=== PATIENT | female | born 1965 | race Two or more races ===

== ENCOUNTER 2017-04-18 17:31 | Emergency (ER) | payer MEDICAID ==
[~2017-04-18] VITALS: Ht 154.9 cm; Wt 77.1 kg
[2017-04-18 17:52] VITALS: BP 107/74
[2017-04-18] MEDS ORDERED: cefTRIAXone SOD 1,000 MG VL IM ONE (19:30)
[2017-04-18] MEDS ORDERED: TETANUS-DIPTH-ACEL PERTUSSIS 0.5ML SYRG IM ONE (19:45)
== END 2017-04-18 19:57 | disposition home or self-care (01) ==
LOC: ER 17:45
DX: L03.113 Cellulitis of right upper limb (principal); L81.8 Other specified disorders of pigmentation; Z23 Encounter for immunization
CPT/HCPCS: 90471; 90715; 96372; 99284; J0696

== ENCOUNTER 2017-10-14 09:37 | Emergency (ER) | payer MEDICAID ==
[~2017-10-14] VITALS: Ht 154.9 cm; Wt 79.4 kg
[2017-10-14 11:26] VITALS: BP 129/70
== END 2017-10-14 11:26 | disposition home or self-care (01) ==
LOC: ER 09:37
DX: G51.0 Bell's palsy (principal); E07.89 Other specified disorders of thyroid; Z90.710 Acquired absence of both cervix and uterus; Z98.51 Tubal ligation status; Z90.89 Acquired absence of other organs
CPT/HCPCS: 70450

== ENCOUNTER 2018-01-04 10:12 | Emergency (ER) | payer MEDICAID ==
[~2018-01-04] VITALS: Ht 157.5 cm; Wt 77.1 kg
[2018-01-04 10:45] VITALS: BP 108/77
[2018-01-04] MEDS ORDERED: cefTRIAXone SOD 1,000 MG VL IM ONE (11:45)
== END 2018-01-04 12:26 | disposition home or self-care (01) ==
LOC: ER 10:12
DX: K04.7 Periapical abscess without sinus (principal); Z86.73 Personal history of transient ischemic attack (TIA), and cerebral infarction without residual deficits
CPT/HCPCS: 96372; 99283; J0696

== ENCOUNTER 2018-11-21 11:14 | Emergency (ER) | payer MEDICAID ==
[~2018-11-21] VITALS: Ht 167.6 cm; Wt 81.6 kg
[2018-11-21] MEDS ORDERED: SODIUM CHLORIDE 0.9% 1,000 ML IV ONE (11:19)
[2018-11-21] MEDS ORDERED: diphenhdrAMINE HCL 50 MG/1 ML VL IV ONE (11:30)
[2018-11-21] MEDS ORDERED: LORazepam 2MG/ML-1ML VIAL IV ONE (12:00)
[2018-11-21 12:19] LABS: Basophils # (auto) 0.1 uL; Basophils % (auto) 1.7 % (0.0-2.0); Eosinophils # (auto) 0.1 uL; Eosinophils % (auto) 2.1 % (0.0-7.0); Hematocrit 42.7 % (36.0-46.0); Hemoglobin 14.7 g/dL (12.2-16.2); Lymphocytes # (auto) 1.8 uL; Lymphocytes % (auto) 34.5 % (10.0-50.0); Mean Corpuscular Hemoglobin 31.9 pg (28.0-32.0); Mean Corpuscular Hgb Conc. 34.6 g/dL (32.0-36.0); Mean Corpuscular Volume 92.2 fL (80.0-100.0); Monocytes # (auto) 0.3 uL; Monocytes % (auto) 6.5 % (0.0-12.0); Neutrophils # (auto) 2.8 uL; Neutrophils % (auto) 55.2 % (37.0-80.0); Platelet Count (auto) 181 10^3/uL (140-450); Red Blood Cells 4.63 10^6/uL (4.0-5.20); Red Cell Distribution Width 13.4 % (11.8-14.3); White Blood Cell 5.2 10^3/uL (4.4-10.8)
[2018-11-21 12:35] LABS: Albumin 3.6 g/dL (3.4-5.0); Calcium 8.3 mg/dL (8.5-10.1); Magnesium 1.9 mg/dL (1.6-2.6); Potassium 3.6 mmol/L (3.5-5.1)
[2018-11-21 12:38] LABS: BUN/Creatinine Ratio 19.2; Bilirubin, Total 0.4 mg/dL (0.2-1.0); Total Protein 7.7 g/dL (6.4-8.2)
[2018-11-21 14:56] VITALS: BP 105/61
== END 2018-11-21 16:48 | disposition home or self-care (01) ==
LOC: EDBD 11:14 → ER 11:14
DX: F41.1 Generalized anxiety disorder (principal); R42 Dizziness and giddiness; F32.9 Major depressive disorder, single episode, unspecified; Z90.710 Acquired absence of both cervix and uterus; Z98.51 Tubal ligation status; Z86.73 Personal history of transient ischemic attack (TIA), and cerebral infarction without residual deficits
CPT/HCPCS: 36415; 80053; 83735; 85025; 94761; 96361; 96374; 96375; 99283; J1200; J2060; J7030

== ENCOUNTER 2019-07-21 12:55 | Emergency (ER) | payer MEDICAID ==
[~2019-07-21] VITALS: Ht 157.5 cm; Wt 77.1 kg
[2019-07-21 13:27] LABS: Basophils # (auto) 0.1 uL; Eosinophils # (auto) 0.1 uL; Eosinophils % (auto) 1.8 % (0.0-7.0); Hematocrit 43.3 % (36.0-46.0); Lymphocytes # (auto) 1.9 uL; Lymphocytes % (auto) 35.3 % (10.0-50.0); Mean Corpuscular Hemoglobin 31.2 pg (28.0-32.0); Mean Corpuscular Hgb Conc. 34.6 g/dL (32.0-36.0); Mean Corpuscular Volume 90.3 fL (80.0-100.0); Monocytes # (auto) 0.4 uL; Monocytes % (auto) 8.4 % (0.0-12.0); Neutrophils # (auto) 2.8 uL; Neutrophils % (auto) 53.5 % (37.0-80.0); Nucleated Red Blood Cells % 0.1 %; Platelet Count (auto) 167 10^3/uL (140-450); Red Blood Cells 4.79 10^6/uL (4.0-5.20); Red Cell Distribution Width 13.1 % (11.8-14.3); White Blood Cell 5.2 10^3/uL (4.4-10.8)
[2019-07-21] MEDS ORDERED: ACYCLOVIR 400 MG TAB PO ONE (13:45)
[2019-07-21] MEDS ORDERED: methylPREDNISolone SOD SUCC 125 MG/2 ML VL IV ONE (13:45)
[2019-07-21 13:55] VITALS: BP 103/63
[2019-07-21 13:56] LABS: Alanine Aminotransferase 39 U/L (13-56); Albumin 3.9 g/dL (3.4-5.0); Alkaline Phosphatase 75 U/L (45-117); Anion Gap 8 (5-15); Aspartate Aminotransferase 21 U/L (15-37); BUN/Creatinine Ratio 20.3; Bilirubin, Total 0.6 mg/dL (0.2-1.0); Blood Urea Nitrogen 15 mg/dL (7-18); Calcium 8.9 mg/dL (8.5-10.1); Carbon Dioxide 26 mmol/L (21-32); Chloride 107 mmol/L (98-107); GFR African American 106 mL/min; GFR Non-African American 87 mL/min; Glucose 100 mg/dL (74-106); Potassium 3.6 mmol/L (3.5-5.1); Sodium 141 mmol/L (136-145); Total Protein 8.1 g/dL (6.4-8.2)
[2019-07-21 14:20] LABS: Urine Bacteria NONE SEEN /hpf (None Seen); Urine Blood Negative /uL (Negative); Urine Specific Gravity 1.007 (1.001-1.035); Urine WBC 13 /hpf (0 - 5)
== END 2019-07-21 15:17 | disposition home or self-care (01) ==
LOC: ER 12:57
DX: G51.0 Bell's palsy (principal); F41.8 Other specified anxiety disorders; N39.0 Urinary tract infection, site not specified; F32.9 Major depressive disorder, single episode, unspecified; Z86.73 Personal history of transient ischemic attack (TIA), and cerebral infarction without residual deficits; Z90.710 Acquired absence of both cervix and uterus
CPT/HCPCS: 36415; 70450; 80053; 81001; 84484; 85025; 93005; 96374; 99284; J2930

== ENCOUNTER 2019-08-20 21:47 | Emergency (ER) | payer MEDICAID ==
[~2019-08-20] VITALS: Ht 157.5 cm; Wt 77.1 kg
[2019-08-20 21:52] VITALS: BP 110/72
== END 2019-08-20 23:44 | disposition home or self-care (01) ==
LOC: ER 21:47
DX: S30.810A Abrasion of lower back and pelvis, initial encounter (principal); Z90.710 Acquired absence of both cervix and uterus; Z98.51 Tubal ligation status; X58.XXXA Exposure to other specified factors, initial encounter; Y93.89 Activity, other specified; Y92.098 Other place in other non-institutional residence as the place of occurrence of the external cause; Y99.8 Other external cause status

== ENCOUNTER 2022-11-01 17:49 | Emergency (ER) | payer MEDICAID ==
[~2022-11-01] VITALS: Ht 157.5 cm; Wt 81.4 kg
[2022-11-01] MEDS ORDERED: SODIUM CHLORIDE 0.9% 1,000 ML IV ONE (18:00)
[2022-11-01 18:34] LABS: Basophils # (auto) 0.1 10 ^3/uL (0-0.2); Basophils % (auto) 0.8 % (0.0-2.0); Eosinophils # (auto) 0.3 10 ^3/uL (0-0.8); Eosinophils % (auto) 3.7 % (0.0-7.0); Hematocrit 42.6 % (36.0-46.0); Hemoglobin 14.4 g/dL (12.2-16.2); Lymphocytes # (auto) 3.3 10 ^3/uL (0.4-5.4); Lymphocytes % (auto) 44.6 % (10.0-50.0); Mean Corpuscular Hemoglobin 31.2 pg (28.0-32.0); Mean Corpuscular Hgb Conc. 33.8 g/dL (32.0-36.0); Mean Corpuscular Volume 92.5 fL (80.0-100.0); Monocytes # (auto) 0.5 10 ^3/uL (0-1.3); Monocytes % (auto) 7.3 % (0.0-12.0); Neutrophils # (auto) 3.2 10 ^3/uL (1.6-8.6); Neutrophils % (auto) 43.6 % (37.0-80.0); Nucleated Red Blood Cells % 0.1 %; Red Blood Cells 4.61 10^6/uL (4.0-5.20); Red Cell Distribution Width 13.2 % (11.8-14.3); White Blood Cell 7.4 10^3/uL (4.4-10.8)
[2022-11-01 18:36] LABS: Albumin 3.8 g/dL (3.4-5.0); Calcium 8.8 mg/dL (8.5-10.1)
[2022-11-01 18:38] LABS: BUN/Creatinine Ratio 25.6
[2022-11-01 18:41] LABS: Bilirubin, Total 0.6 mg/dL (0.2-1.0); Total Protein 7.5 g/dL (6.4-8.2)
[2022-11-01] MEDS ORDERED: predniSONE 20 MG TAB PO ONE (19:00)
[2022-11-01] MEDS ORDERED: PANT40TA2 PO (19:27)
[2022-11-01] MEDS ORDERED: PRED20TA2 PO (19:27)
[2022-11-01 21:40] VITALS: BP 117/74
== END 2022-11-01 21:47 | disposition home or self-care (01) ==
LOC: ER 17:49
DX: G51.0 Bell's palsy (principal); E03.9 Hypothyroidism, unspecified; Z86.73 Personal history of transient ischemic attack (TIA), and cerebral infarction without residual deficits; Z90.710 Acquired absence of both cervix and uterus; W21.07XA Struck by softball, initial encounter; Y93.64 Activity, baseball; Y92.89 Other specified places as the place of occurrence of the external cause; Y99.8 Other external cause status
CPT/HCPCS: 36415; 70450; 71045; 80053; 84484; 85025; 99285; J7512

== ENCOUNTER 2023-08-03 20:13 | Emergency (ER) | payer MEDICAID ==
[~2023-08-03] VITALS: Ht 154.9 cm; Wt 86.6 kg
[~2023-08-03 20:13] MED LIST: PANT40TA2 PO; PRED20TA2 PO
[2023-08-03] MEDS ORDERED: IPRATROPIUM BROM 0.5 MG/2.5ML INH SOL NEB ONE (21:45)
[2023-08-03] MEDS ORDERED: diphenhdrAMINE HCL 50 MG/1 ML VL IM ONE (21:45)
[2023-08-03] MEDS ORDERED: ALBUTEROL MEDNEB 2.5 mg/3ml NEB NEB ONE (21:45)
[2023-08-03] MEDS ORDERED: DexAMETHasone SOD PHOS 10MG/1ML VIAL INJ IM ONE (21:45)
[2023-08-03] MEDS ORDERED: FAMOTIDINE 20 MG TAB PO ONE (21:45)
[2023-08-03] MEDS ORDERED: guaiFENesin-CODEINE Liq 5 ML UD PO ONE (21:45)
[2023-08-03] MEDS ORDERED: CEPH500C PO (21:59)
[2023-08-03] MEDS ORDERED: DIPH25CA66 PO (21:59)
[2023-08-03] MEDS ORDERED: FAMO20TA10 PO (21:59)
[2023-08-03] MEDS ORDERED: BENZ200C64 PO (21:59)
[2023-08-03] MEDS ORDERED: ALBUAER3 IN (21:59)
[2023-08-03 23:00] VITALS: BP 136/73; PULSE 88; RESP 18; TEMP 98; O2SAT 96
== END 2023-08-03 22:00 | disposition home or self-care (01) ==
LOC: ER 20:13
DX: T78.40XA Allergy, unspecified, initial encounter (principal); J20.9 Acute bronchitis, unspecified; F41.9 Anxiety disorder, unspecified; F32.9 Major depressive disorder, single episode, unspecified; Z85.9 Personal history of malignant neoplasm, unspecified; Z86.73 Personal history of transient ischemic attack (TIA), and cerebral infarction without residual deficits; Z98.890 Other specified postprocedural states; Z79.899 Other long term (current) drug therapy; X58.XXXA Exposure to other specified factors, initial encounter
CPT/HCPCS: 36415; 94640; 96372; 99284; J1100; J1200; J7644